=== PATIENT | male | born 1990 | race Caucasian/White ===

== ENCOUNTER 2016-10-08 23:42 | Emergency (ER) | payer OTHER ==
[~2016-10-08 23:42] MED LIST: ASPIRIN EC325 MG PO; NEURONTIN300 MG PO; PHENYTOIN PO; PROAIR HFA8.5 GM INH; PROTONIX40 MG PO; ZOCOR40 MG PO
[2016-10-09 02:16] LABS: HEMOGLOBIN 13.9 gm/dl (14.0-17.5); RED BLOOD COUNT 5.07 M/UL (4.20-5.50); WHITE BLOOD COUNT 9.5 K/UL (4.5-11.0)
[2016-10-09 02:30] LABS: BUN/CREATININE RATIO 13 (0-10)
== END 2016-10-09 06:30 | disposition home or self-care (01) ==
LOC: ER1 23:42
PROVIDERS: Student in an Organized Health Care Education/Training Program
DX: G40.909 Epilepsy, unspecified, not intractable, without status epilepticus (principal); E87.6 Hypokalemia; E78.5 Hyperlipidemia, unspecified; Z79.82 Long term (current) use of aspirin; Z79.899 Other long term (current) drug therapy
CPT/HCPCS: 36415; 70450; 80053; 80185; 81001; 83735; 85025; 87086; 93005; 99285

== ENCOUNTER 2016-10-19 03:35 | Emergency (ER) | payer OTHER ==
[2016-10-19 06:46] LABS: HEMOGLOBIN 13.8 gm/dl (14.0-17.5); RED BLOOD COUNT 5.06 M/UL (4.20-5.50); WHITE BLOOD COUNT 8.1 K/UL (4.5-11.0)
[2016-10-19 07:10] LABS: BUN/CREATININE RATIO 11 (0-10)
== END 2016-10-19 15:05 ==
LOC: ER1 03:35
PROVIDERS: Specialist/Technologist Athletic Trainer
DX: R41.82 Altered mental status, unspecified (principal); R41.0 Disorientation, unspecified; G40.909 Epilepsy, unspecified, not intractable, without status epilepticus; I25.10 Atherosclerotic heart disease of native coronary artery without angina pectoris; Z79.899 Other long term (current) drug therapy
CPT/HCPCS: 36415; 70450; 71010; 80053; 80185; 80307; 81001; 82140; 82330; 82550; 82553; 83735; 83874; 84484; 85025; 93005; 96361; 96365; 99285; G0480; J1953; J7030

== ENCOUNTER 2020-12-09 23:27 | Emergency (ER) | payer OTHER ==
[~2020-12-09 23:27] MED LIST changes: +DEXILANT60 MG PO; +DILANTIN 100 M100 MG PO; +GLUCOPHAGE XR500 MG PO; +K-DUR TAB 10 M10 MEQ PO; +KEPPRA500 MG PO; +LISINOPRIL-HCT1 EACH PO; -PHENYTOIN PO; +VITAMIN D250000 UNIT PO; +VITAMIN D32000 UNI1 PO
[2020-12-10 00:08] LABS: HEMOGLOBIN 14.4 gm/dl (14.0-17.5); RED BLOOD COUNT 4.94 M/UL (4.20-5.50); WHITE BLOOD COUNT 8.6 K/UL (4.5-11.0)
[2020-12-10 00:38] LABS: BUN/CREATININE RATIO 10 (0-10)
== END 2020-12-10 07:45 | disposition short-term general hospital (02) ==
LOC: ER1 23:27
PROVIDERS: Emergency Medicine
DX: I63.9 Cerebral infarction, unspecified (principal); Z20.822 Contact with and (suspected) exposure to COVID-19
CPT/HCPCS: 70450; 70496; 70498; 71045; 80053; 82550; 82553; 83874; 83880; 84484; 85025; 85610; 85730; 93005; 96374; 96375; 96376; 99285; J2270; J2997; Q9967; U0002

== ENCOUNTER 2020-12-20 02:10 | Emergency (ER) | payer OTHER ==
[2020-12-20 02:42] LABS: HEMOGLOBIN 14.6 gm/dl (14.0-17.5); RED BLOOD COUNT 5.05 M/UL (4.20-5.50); WHITE BLOOD COUNT 8.7 K/UL (4.5-11.0)
[2020-12-20 03:04] LABS: BUN/CREATININE RATIO 10 (0-10)
== END 2020-12-20 06:47 | disposition home or self-care (01) ==
LOC: ER1 02:10
PROVIDERS: Physician Assistant
DX: R07.9 Chest pain, unspecified (principal); R06.00 Dyspnea, unspecified; R53.83 Other fatigue; I25.2 Old myocardial infarction; Z20.822 Contact with and (suspected) exposure to COVID-19; E78.5 Hyperlipidemia, unspecified; R50.9 Fever, unspecified; R05 Cough; I11.9 Hypertensive heart disease without heart failure; Z86.73 Personal history of transient ischemic attack (TIA), and cerebral infarction without residual deficits; Z90.49 Acquired absence of other specified parts of digestive tract; Z95.1 Presence of aortocoronary bypass graft
CPT/HCPCS: 71045; 80053; 82550; 82553; 83605; 83874; 83880; 84484; 85025; 85379; 85610; 85730; 93005; 94640; 94664; 96374; 99285; J1100; Q9967; U0002